=== PATIENT | female | born 1990 | race Hispanic/Latino ===

== ENCOUNTER 2024-11-24 17:28 | Emergency (ER) | payer SELFPAY ==
[2024-11-24 17:30] VITALS: BP 98/62; PULSE 70; RESP 16; TEMP 36.1; O2SAT 99; BMI 21.3
--- NOTE | 2024-11-24 18:10 | RAD_ITS ---
PROCEDURE: FINGER(S) MIN 2 VIEWS 11/24/2024 REASON FOR EXAM: TRAUMA TECHNIQUE: FINGER(S) MIN 2 VIEWS COMPARISON: none RAD/Finger(s) Min 2 Views IMPRESSION: No acute fracture or dislocations. No significant degenerative changes. Minimal soft tissue edema. No radiographic foreign body. Reading Location: [facility]
--- NOTE | 2024-11-24 18:13 | EDS_ITS ---
HPI History of Present Illness Chief Complaint: Foreign Body Narrative Narrative: 34-year-old female, [id number], presents with right middle finger pain status post injury. She is mainly [place]ish-speaking. 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 She states that on , approximately 3 days ago, she was at work, wearing gloves. She thinks the metal splinter entered her third finger. She feels she removed it completely, but is unsure. She now has pain and swelling of her right middle finger on the proximal phalanx. No discoloration, no fevers or chills, no nausea or vomiting, denies other injury. She is unsure if there is a foreign body that remains. PFSH PFSH Medical History no medical history Home Medications Medication Instructions Recorded Last Taken Type ibuprofen 600 mg tablet 600 mg PO Q8H PRN PRN pain # 20 11/24/24 Unknown Rx TABLETS Social History Smoking Status: Never smoker ROS ROS ED ROS Narrative Review of systems positive for right middle finger pain. Patient [id number]. Denies other injury. No fevers or chills, no purulent drainage, no redness to the area. EXAM Physical Exam Narrative Exam Narrative: Afebrile. Vital signs noted. Nontoxic-appearing. Cardiovascular examination regular rate and rhythm. Lungs clear to auscultation bilaterally. Abdomen soft nontender with normoactive bowel sounds. Inspection of the right hand reveals mild tenderness to palpation with minimal amount of swelling along the proximal phalanx on the dorsum of the hand. There is no erythema, no fluctuance. She is neurovascularly intact distally with good capillary refill. Uninjured at the wrist and above. Const Vital Signs: 11/24/24 17:30 Temperature 97 F L Temperature Source Oral Pulse Rate 70 Respiratory Rate 16 Blood Pressure 98/62 Blood Pressure Mean 74 Pulse Ox 99 MDM MDM MDM Narrative Medical decision making narrative: The differential diagnosis includes but not limited to retained foreign body, metal versus local inflammatory changes versus cellulitis versus compartment syndrome. History and physical does not support compartment syndrome. I do not think that she has a tenosynovitis either because she does not have pain with passive range of motion of her finger or and there is mild pain with active r mayank of motion. She was administered ibuprofen 600 mg for analgesia as she states that she has not taken any analgesics. X-rays will be obtained of the right third digit/middle finger to help rule out foreign body if there is a radiopaque foreign body, and also rule out fracture. X-rays interpreted by myself independently show no evidence of acute fracture or foreign body. At this point in time she will be placed in a splint told to continue elevation of her finger, and follow-up with primary care. She was also referred to plastic/hand to follow-up with as needed. She is to exercise her finger a few times a day. I wrote a prescription for an anti-inflammatory as well. Return instructions to the emergency department were reviewed. Disposition is discharged home in stable condition. History & Record Review Discussion w/independent historian: Patient Discharge Plan Triage Chief Complaint: Foreign Body ED Provider: Oskar Duran Dx/Rx/DC Orders Clinical Impression: Pain in finger, Finger sprain Instructions: ED Finger Sprain Prescriptions: New ibuprofen 600 mg tablet 600 mg PO Q8H PRN PRN (Reason: pain) Qty: 20 0RF Primary Care Provider: Care Physician,No Primary Referrals: Giancarlo Dinh MD [Med Staff - Active Staff] - 1 Week if not improving Jaime Oden MD [Med Staff - Active Staff] - As Needed Care Physician,No Primary [Primary Care Provider] - Activity Restrictions/Additional Instructions: Take the anti-inflammatory as directed. Wear the finger splint for up to 1 week but exercise your middle finger a few times a day to prevent stiffness. Return with fever, redness to area, new or worsening symptoms. Print Language: Luxem[place]ish Disposition Disposition: Home, Self Care
--- OUTSIDE RECORDS SUMMARY | 2024-11-24 18:13 | XMS RPT_ITS | CCD ---
Author Organization [facility] Care Team Providers Care Slabber Light Name Role Phone Oskar Duran Attending Unavailable NOT, DEFINED Primary Care Unavailable Encounters Encounter Date Encounter Type Care Provider Facility Start: 11-24-2024 ambulatory Oskar cheryl Facility:[facility] Payers Date Payer Category Payer Self-pay Summary Purpose Family History No Family History Records Found Advance Directives No Advanced Directives Records Found Additional Source Comments INFORMATION SOURCE (unrecogn ized section and content) DATE CREATED AUTHOR 11/24/2024 [facility] FOR RECORDS PERTAINING TO PATIENTS WHO ARE OR HAVE BEEN ENROLLED IN A CHEMICAL DEPENDENCY/SUBSTANCEABUSE PROGRAM, SOME INFORMATION MAY BE OMITTED. This clinical summary was aggregated from multiple sources. Caution should be exercised in using it in the provision of clinical care. This summary normalizes information from multiple sources, and as a consequence, information in this document may materially change the coding, format and clinical context of patient data. In addition, data may be omitted in some cases. CLINICAL DECISIONS SHOULD BE BASED ON THE PRIMARY CLINICAL RECORDS. [employer] provides no warranty or guarantee of the accuracy or completeness of information in this document.
[2024-11-24 20:29] VITALS: BP 115/73; PULSE 65; RESP 18; TEMP 36.6; O2SAT 99
== END 2024-11-24 20:30 | disposition home or self-care (01) ==
PROVIDERS: Emergency Provider Emergency Medicine; Visit Provider Emergency Medicine
DX: M79.644 Pain in right finger(s) (principal); S63.612A Unspecified sprain of right middle finger, initial encounter; X58.XXXA Exposure to other specified factors, initial encounter
CPT/HCPCS: 73140; 99283